=== PATIENT | male | born 1980 | race Hispanic/Latino ===

== ENCOUNTER 2020-12-11 07:53 | Emergency (ER) | payer OTHER ==
[~2020-12-11] VITALS: Ht 165.1 cm; Wt 72.6 kg
[2020-12-11 09:09] VITALS: BP 131/65
[2020-12-11] MEDS ORDERED: ACETAMINOPHEN 500 MG TABLET ONE (09:10)
[2020-12-11] MEDS ORDERED: AZIT500T2 PO (09:22)
[2020-12-11] MEDS ORDERED: BUDE10.26 IH (09:22)
[2020-12-11] MEDS ORDERED: ALBUHFA IH (09:22)
== END 2020-12-11 09:35 | disposition home or self-care (01) ==
LOC: EDH 07:53
DX: U07.1 COVID-19 (principal); J06.9 Acute upper respiratory infection, unspecified
CPT/HCPCS: 71045; 87635; 87804 ×2; 93005; 99285; C9803